=== PATIENT | male | born 1955 | race Hispanic/Latino ===

== ENCOUNTER → 2020-08-28 | Outpatient (CLI) | payer MEDICARE, OTHER ==
[~2020-08-28] MED LIST: ASPI-1443 PO; GADODIAMIDE 10 MMOL/20 ML VIAL IV ONE; MULT-950 PO
== END | disposition home or self-care (01) ==
LOC: RAH 10:56
PROVIDERS: ATTEND Family Medicine
DX: M51.27 Other intervertebral disc displacement, lumbosacral region (principal); M48.07 Spinal stenosis, lumbosacral region
CPT/HCPCS: 72158; A9579

== ENCOUNTER → 2020-09-10 | Outpatient (CLI) | payer OTHER ==
[~2020-09-10] MED LIST changes: -GADODIAMIDE 10 MMOL/20 ML VIAL IV ONE
== END | disposition home or self-care (01) ==
LOC: RAH 10:42
PROVIDERS: ATTEND Neurological Surgery
DX: I70.218 Atherosclerosis of native arteries of extremities with intermittent claudication, other extremity (principal)
CPT/HCPCS: 93925